=== PATIENT | female | born 1945 | race Caucasian/White ===

== ENCOUNTER → 2016-08-06 | Outpatient (CLI) | payer MEDICARE ==
--- NOTE | ~2016-08-06 | CR169 ---
[facility] A Service of [facility] & [facility] RADIOLOGY TEXT RESULTS PATIENT: JOSEF PAEZ LOCATION: [facility] : 45 UNIT #: [id number] AGE: [address]: Reno Velasco MD SEX: F ORDER DR: [id number] [address] [address] [id number] O MR#: [id number] Acc #: [id number] NAME: JOSEF PAEZ : 1945 SEX: F STUDY DATE/TIME: 08/06/2016 11:05 UNIT: [facility] ROOM: STUDY DESCRIPTION: CR Knee 2 Views Lt Attending Physician: Reno Velasco M.D. Referring Physician: Reno Velasco M.D. Ordering Physician: Reno Velasco M.D. Primary Care Physician: Viviana Ayers A.P.R.N. MEDICAL IMAGING REPORT This report is preliminary unless electronic signature is present. EXAM Left knee 2 views 08/06/2016 HISTORY Knee pain and swelling for 2 months. FINDINGS 2 views of the left knee demonstrate normal bone alignment. Minimal hypertrophic spurring along the medial joint line. Mild prepatellar soft tissue swelling. No fracture, joint space narrowing or effusion. IMPRESSION 1. Mild prepatellar soft tissue swelling and minimal hypertrophic spurring along the medial joint line. 2. Left knee is otherwise negative. Dictated by... Felice Espinal M.D. THIS IS AN ELECTRONICALLY VERIFIED REPORT Felice Espinal M.D. at 08/06/2016 11:02 PM TIFFANI/kalyani TD: 08/06/2016 17:46 JOB #: [id number] MEDICAL IMAGING REPORT Page 1 of 1
== END | disposition home or self-care (01) ==
LOC: SRAD 10:17
DX: M25.862 Other specified joint disorders, left knee (principal); M79.89 Other specified soft tissue disorders
CPT/HCPCS: 73560